=== PATIENT | male | born 1950 | race Caucasian/White ===

== ENCOUNTER → 2020-07-25 | Outpatient (CLI) | payer OTHER ==
[~2020-07-25] MED LIST: ACETAMINOPHEN-1 EAC1 PO; ASPIRIN325 PO; BEANO1 EACH PO; COLACE100 MG; NORCO 5-325 TA1 EACH; PRILOSEC40 MG PO; PROBIOTIC1 EAC1 PO
== END ==
LOC: CAT 08:25
PROVIDERS: ATTEND Family Medicine
DX: Z13.6 Encounter for screening for cardiovascular disorders (principal); I25.10 Atherosclerotic heart disease of native coronary artery without angina pectoris; E78.00 Pure hypercholesterolemia, unspecified